=== PATIENT | female | born 1935 | race Caucasian/White ===

== ENCOUNTER → 2017-09-06 | Outpatient (CLI) | payer MEDICARE, BC ==
--- NOTE | 2017-09-06 12:11 | RADIOLOGY REPORT (SQ) ---
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 TECHNIQUE: Axial images acquired through the lumbar spine without intravenous contrast. Images revi ewed with lung, soft tissue and bone windows. Reconstructed coronal and sagittal MPR images reviewed . All images stored on PACS. All CT scanners at this facility use dose modulation, iterative reconstruction, and/or weight based d osing when appropriate to reduce radiation dose to as low as reasonably achievable (ALARA). [facility]: Dose Right [facility]: CareDose [facility]: Dose Right [facility]: Teradose 4D [facility]: [employer] RADIATION DOSE: Up-to-date CT equipment and radiation dose reduction techniques were employed. CTDIv ol: 5.7 mGy. DLP: 172 mGy-cm. mGy. LIMITATIONS: None. FINDINGS: SEGMENTATION: Normal. No transitional anatomy. ALIGNMENT: Normal. VERTEBRAL BODIES: No fractures. No dislocation. No acute findings. Vertebral body endplate scleros is and anterior osteophyte formation at L3-4. Schmorl's node inferior endplate of L3 DISCS: The T12-L1 level is unremarkable. At L1-2, minimal posterior disc bulging and mild facet and ligament hypertrophy is present with borde rline central canal narrowing. No significant foraminal narrowing. At L2-3, disc space loss of height, broad diffuse posterior disc bulging and moderate bilateral facet and ligament hypertrophy causes borderline central canal narrowing. Mild bilateral inferior foramin al narrowing without exiting L2 nerve root impingement. At L3-4, mild central canal stenosis results from broad diffuse posterior disc bulge and bony spurrin g and moderate bilateral facet and ligament hypertrophy. There is flattening of the thecal sac into a triangular shape, best shown on axial image 51. There is mild bilateral inferior foraminal narrowi ng without exiting L3 nerve root impingement. At L4-5, broad diffuse posterior disc bulge and moderate bilateral facet and ligament hypertrophy cau se moderate central canal narrowing with flattening of the thecal sac into a triangular shape, best s hown on axial image 63. There is mild bilateral inferior foraminal narrowing without exiting L4 nerv e root impingement. At L5-S1, a small right paracentral disc protrusion/herniation is suspected, flattening the thecal sa c near the takeoff of the right proximal S1 nerve root. This is best shown on axial image 76. Also at L5-S1, a small left paracentral and proximal foraminal disc herniation is suspected, flatteni ng the thecal sac near the takeoff of the left S1 nerve root. This best shown on axial image 74. Elsewhere at L5-S1 there is mild bilateral facet arthropathy. No central stenosis. Mild bilateral i nferior foraminal narrowing is present without definite exiting L5 nerve root impingement. PEDICLES, TRANSVERSE PROCESSES: No fractures. No dislocation. No acute findings. FACETS, POSTERIOR ELEMENTS: No fractures. No dislocation. Multilevel facet arthropathy. HARDWARE: None in the spine. VISUALIZED RIBS: No fractures. SOFT TISSUES: No significant or acute finding in adjacent soft tissues. OTHER: No other significant finding. IMPRESSION: Central canal stenosis at L4-5 Small right and left paracentral disc protrusion/ herniation at L5-S1 as above TECHNICAL DOCUMENTATION: JOB ID: [id number] Quality ID # [id number]: Final reports with documentation of one or more dose reduction techniques (e.g., Au tomated exposure control, adjustment of the mA and/or kV according to patient size, use of iterative reconstruction technique) 2010 [employer]- All Rights Reserved
== END ==
LOC: RAD 08:24
PROVIDERS: ATTEND Specialist
DX: M54.16 Radiculopathy, lumbar region (principal)
CPT/HCPCS: 72131

== ENCOUNTER → 2017-10-04 | Outpatient (CLI) | payer MEDICARE, BC ==
--- NOTE | 2017-10-04 13:25 | RADIOLOGY REPORT (SQ) ---
EXAM DESCRIPTION: CT HEAD WITHOUT COMPLETED DATE/TIME: 10/04/2017 1:02 pm REASON FOR STUDY: HEADACHE (R51) R51 HEADACHE COMPARISON: 2012. TECHNIQUE: Axial images acquired through the brain without intravenous contrast. Images reviewed wi th bone, brain and subdural windows. Images stored on PACS. All CT scanners at this facility use dose modulation, iterative reconstruction, and/or weight based d osing when appropriate to reduce radiation dose to as low as reasonably achievable (ALARA). [facility]: Dose Right [facility]: CareDose [facility]: Dose Right [facility]: Teradose 4D [facility]: [employer] RADIATION DOSE: CT Rad equipment meets quality standard of care and radiation dose reduction techniq ues were employed. CTDIvol: 49.0 mGy. DLP: 881 mGy-cm. mGy. LIMITATIONS: None. FINDINGS: VENTRICLES: Normal size and contour. CEREBRUM: No masses. No hemorrhage. No midline shift. No evidence for acute infarction. Normal gra y/white matter differentiation. No areas of low density in the white matter. CEREBELLUM: No masses. No hemorrhage. No alteration of density. No evidence for acute infarction. EXTRAAXIAL SPACES: No fluid collections. No masses. ORBITS AND GLOBE: No intra- or extraconal masses. Normal contour of globe without masses. CALVARIUM: No fracture. PARANASAL SINUSES: No fluid or mucosal thickening. SOFT TISSUES: No mass or hematoma. OTHER: No other significant finding. IMPRESSION: NORMAL BRAIN CT WITHOUT CONTRAST. EVIDENCE OF ACUTE STROKE: NO. COMMENT: Quality ID # [id number]: Final reports with documentation of one or more dose reduction techniques (e.g., Automated exposure control, adjustment of the mA and/or kV according to patient size, use of iterative reconstruction technique) TECHNICAL DOCUMENTATION: JOB ID: [id number]- All Rights Reserved
== END ==
LOC: RAD 12:50
PROVIDERS: ATTEND Specialist
DX: R51 Headache (principal)
CPT/HCPCS: 70450